=== PATIENT | female | born 1970 | race Caucasian/White ===

== ENCOUNTER → 2024-01-03 11:43 | Outpatient (REF) | payer OTHER, SELFPAY | LOC: HWRAD 11:43 | PROVIDERS: ATTENDING PHYSICIAN Orthopaedic Surgery; FAMILY PHYSICIAN Family Medicine | DX: S42.022D Displaced fracture of shaft of left clavicle, subsequent encounter for fracture with routine healing (principal) | CPT/HCPCS: 73200 ==

== ENCOUNTER 2024-08-19 11:49 | Emergency (ER) | payer OTHER, SELFPAY ==
[2024-08-19 11:51] VITALS: BP 131/94
[2024-08-19 12:59] LABS: Urine Albumin 1+ (Neg - Trace); Urine Bilirubin Negative (Negative); Urine Character Clear (Clear); Urine Color Yellow; Urine Glucose Negative (Negative); Urine Ketone Negative (Negative); Urine Leukocyte 2+ (Negative); Urine Nitrite Negative (Negative); Urine Occult Blood Negative (Negative); Urine Urobilinogen Negative (Neg - 1+)
[2024-08-19 14:15] VITALS: BP 125/77
--- NOTE | 2024-08-19 14:27 | ED.GENMED ---
History of Present Illness
<Zeenat Easley PA-C - Last Filed: 08/19/24 19:18>
General
Chief Complaint: Urinary Symptoms
Source: patient
Exam Limitations: none
Time Seen by Provider: 08/19/24 14:09
History of Present Illness
History of Present Illness:
54yoF with a history of kidney stones presenting for evaluation of abdominal discomfort and difficulty urinating. Symptoms initially began last week with urinary urgency and suprapubic pain. She states she was unable to urinate at all 2 days ago.
She is now able to urinate only if she leans forward and put some pressure on her lower abdomen. She reports continued urinary urgency and states her lower abdomen is very bloated. Patient also is experiencing bilateral flank pain. She has had
urinary urgency with her prior kidney stone but she has never been bloated like this before. Her bowel movements are described as diarrhea. She denies any fevers, chills, vomiting, pleuritic pain, shortness of breath. She was seen by her PCP
prior to arrival and was sent to the ED for evaluation.
Phy Exam
<Zeenat Easley PA-C - Last Filed: 08/19/24 19:18>
General Physical Exam
General Presentation: well appearing and no apparent distress
General Skin: warm and dry
General Habitus: normal
General Mental: alert
ENT Exam
ENT Exam: normocephalic
Gastrointestinal Exam
Gastrointestinal Exam: soft and other (Significant distention noted in the lower abdomen with tenderness. )
Neurological Exam
Neurological Exam: alert, no motor deficits and other (5/5 strength and normal sensation in bilateral lower extremities. 2+ patellar reflexes bilaterally.)
[place] Coma Scale
Eye Opening: Spontaneous
Verbal Response: Oriented
Motor Response: Obeys Commands
GCS Total Score: 15
Skin Exam
Skin Exam: normal color and warm/dry
Psychiatric Exam
Psychiatric Exam: normal mood/affect
<Beau Naik DO - Last Filed: 08/19/24 19:55>
[place] Coma Scale
GCS Total Score: 15
Course
<Zeenat Easley PA-C - Last Filed: 08/19/24 19:18>
Orders/Labs/Results
Orders:
Orders
08/19/24 12:30
Urinalysis Reflex To Culture Urgent
Date Specimen was Collected: 08/19/24
Time Specimen was Collected: 12:28
Urine Microscopic Reflex Cult Urgent
Urine Culture Urgent
VANESA Source: U
Specimen Description:
Date Specimen was Collected: 08/19/24
Time Specimen was Collected: 12:28
08/19/24 14:20
Bladder Scan- Treatment ONCE
08/19/24 14:26
CT Abd/pelvis W Iv Cont Urgent
Comment:
Reason For Exam: lower abd pain, difficulty urinating
08/19/24 14:40
Hyatt Placement- Treatment ONCE
Reason for insertion: Acute Retention
08/19/24 14:58
Complete Blood Count/With Diff Urgent
Comprehensive Metabolic Panel Urgent
08/19/24 19:02
Sulfamethox./Trimethoprim Ds [Bactrim Ds 800 mg/160 mg] 1 tablet PO NOW STA
Abnormal Lab Results
08/19/24 08/19/24
12:30 14:58
RBC 4.15 L 10^6/uL
(4.20-5.40)
Hct 36.0 L %
(37.0-47.0)
Leukocyte Esterase Rfl 2+ A
(Negative)
Urine WBC (Reflex) 30-40 A /HPF
(0-5)
Urine Albumin (Reflex) 1+ A
(Neg - Trace)
08/19/24 14:58
08/19/24 14:58
Vital Signs
Initial and Last Documented VS:
Initial Vital Signs
Temp Pulse Resp BP Pulse Ox
97.9 F 83 16 131/94 96
08/19/24 11:51 08/19/24 11:51 08/19/24 11:51 08/19/24 11:51 08/19/24 11:51
Last Documented Vital Signs
Temp Pulse Resp BP Pulse Ox
97.9 F 63 16 102/72 99
08/19/24 11:51 08/19/24 17:25 08/19/24 17:25 08/19/24 17:25 08/19/24 17:25
Gabelt;Beau Naik, - Last Filed: 08/19/24 19:55>
Orders/Labs/Results
Orders:
Orders
08/19/24 12:30
Urinalysis Reflex To Culture Urgent
Date Specimen was Collected: 08/19/24
Time Specimen was Collected: 12:28
Urine Microscopic Reflex Cult Urgent
Urine Culture Urgent
VANESA Source: U
Specimen Description:
Date Specimen was Collected: 08/19/24
Time Specimen was Collected: 12:28
08/19/24 14:20
Bladder Scan- Treatment ONCE
08/19/24 14:26
CT Abd/pelvis W Iv Cont Urgent
Comment:
Reason For Exam: lower abd pain, difficulty urinating
08/19/24 14:40
Hyatt Placement- Treatment ONCE
Reason for insertion: Acute Retention
08/19/24 14:58
Complete Blood Count/With Diff Urgent
Comprehensive Metabolic Panel Urgent
08/19/24 19:02
Sulfamethox./Trimethoprim Ds [Bactrim Ds 800 mg/160 mg] 1 tablet PO NOW STA
Abnormal Lab Results
08/19/24 08/19/24
12:30 14:58
RBC 4.15 L 10^6/uL
(4.20-5.40)
Hct 36.0 L %
(37.0-47.0)
Leukocyte Esterase Rfl 2+ A
(Negative)
Urine WBC (Reflex) 30-40 A /HPF
(0-5)
Urine Albumin (Reflex) 1+ A
(Neg - Trace)
08/19/24 14:58
08/19/24 14:58
Vital Signs
Initial and Last Documented VS:
Initial Vital Signs
Temp Pulse Resp BP Pulse Ox
97.9 F 83 16 131/94 96
08/19/24 11:51 08/19/24 11:51 08/19/24 11:51 08/19/24 11:51 08/19/24 11:51
Last Documented Vital Signs
Temp Pulse Resp BP Pulse Ox
97.9 F 63 16 102/72 99
08/19/24 11:51 08/19/24 17:25 08/19/24 17:25 08/19/24 17:25 08/19/24 17:25
<Zeenat Easley PA-C - Last Filed: 08/19/24 19:18>
MDM/Problems Addressed
Differential Diagnosis Includes:
54yoF here with difficulty urinating and lower abd discomfort x several days. Sent here by PCP. Hx of kidney stones. VSS. There is significant distention noted in the lower abdomen. Differential diagnosis includes but is not limited to: UTI, urinary
retention, kidney stone, constipation
Initial ED plan: UA obtained in triage shows 2+ leukocytes with 30-40 WBC noted. There is >30/LPF squamous epithelial cells present suggesting contaminated sample. Will check bladder scan, CBC, CMP, and CT abdomen.
<Zeenat Easley PA-C - Last Filed: 08/19/24 19:18>
*Critical Care Note
Total Time (30-74mins, 75-104mins- exclusive of procedures): Not Applicable
<Zeenat Easley PA-C - Last Filed: 08/19/24 19:18>
Update Note
Update Note:
Postvoid residual greater than 2 L. Hyatt catheter inserted by nurse with return of about 2200cc clear yellow urine. Abdominal distention significantly improved after catheter placement. Unclear cause of retention. She is not taking any
anticholinergic medications and denies being constipated. She reports two episodes of transient leg weakness over the past few days but denies this currently. Strength, sensation, and reflexes intact to the lower extremities. Labs overall
unremarkable including normal renal function. CT abdomen is negative for acute findings. No indication for hospitalization. She was referred to urology as well as her PCP for further evaluation and catheter removal. Will cover with Bactrim for
possible UTI. ED return precautions reviewed including fevers. Patient in agreement with plan and was discharged in stable condition.
ED Attending Note
<Zeenat Easley PA-C - Last Filed: 08/19/24 19:18>
-
Portions of this chart may have been created with voice recognition software.� Occasional wrong word or��sound alike� substitutions may have occurred due to the inherent limitations of voice recognition software.
<Beau Naik DO - Last Filed: 08/19/24 19:55>
ED Attending Note
Patient seen and examined by attending physician: Yes
I performed the substantive portion of visit, reviewed & personally made and approve the management plan that is documented in note by myself or SILVANO.: Yes
ED Attending Note:
I agree with Zeenat's note
Patient presents with suprapubic discomfort that has been present to a certain degree on and off for a week or 2 but became prominent over the weekend. Patient noted she was unable to pass any urine. She denies any use of [id number]
decongestants or anticholinergics other than an occasional Claritin. She denies any real focal weakness numbness or tingling. She had a couple episodes that were transient of her legs feeling slightly weak but she was standing during these
episodes and did not have to sit down and did not fall. She denies any back pain.
General: Awake, Alert, Oriented X3. No acute distress.
Vitals: unremarkable
Head: Atraumatic
Eyes: Pupils equal, EOMI
Abd: Soft, Nontender, No pulsatile mass
Neuro: Cranial nerves intact, muscle strength equal bilaterally
Skin: Warm, dry, no rash
Extremities: pulses equal b/l, no edema
Patient has significant relief of discomfort with the placement of Hyatt catheter. Over 2 L of urine returned.
Unclear reason for urinary retention. Does not seem related to medications. Her neurologic exam is intact at this point. Will obtain a CT looking for any space-occupying lesion in the pelvis.
Labs are unremarkable. Urinalysis does show a significant number of white blood cells per high-power field but she does also have a lot of squamous cells. This specimen was taken before the catheter and is likely just a contaminated specimen.
Discharge Plan
Departure
Patient Disposition: Home (Routine Discharge)
Date of Disposition: 08/19/24
Time of Disposition: 18:58
Patient with high blood pressure during this ER visit?: No
Discharge Problem:
Acute urinary retention, Urinary tract infection
Instructions: Urinary retention - Discharge instructions, How to care for a urinary catheter
Prescriptions:
New
sulfamethoxazole-trimethoprim [Bactrim DS] 800-160 mg tablet
1 tab PO BID 5 Days Qty: 9 0RF
Referrals:
Glenroy Max MD [Active] -
Santiago Perkins MD [Family Provider] -
Activity Restrictions/Additional Instructions:
Take antibiotics as prescribed.
Please call tomorrow to schedule a follow-up with your family doctor and urology. Catheter will need to be removed by urology in 7 to 10 days.
Return to the ER with any new or worsening symptoms including fevers.
Interventions
Interventions:
*Risk Screen - Suicide Last Done: 08/19/24 11:51
*General Assessment Last Done: 08/19/24 11:51
*ED- Fall Risk Assessment Last Done: 08/19/24 14:22
*ED COVID-19 Vaccine History Last Done: 08/19/24 14:22
ED-Female Genitourinary Assessment Last Done: 08/19/24 14:22
Discharge Date and Time
Print Language: SURINAMESE
[2024-08-19 14:33] LABS: Urine Squamous Cell >30 /LPF (Few)
[2024-08-19 14:34] LABS: Urine Amorphous Seen
[2024-08-19 14:35] LABS: Urine Red Blood Cell 0-2 /HPF (0-2)
[2024-08-19 14:36] LABS: Urine White Cell 30-40 /HPF (0-5)
[2024-08-19 15:14] LABS: % Basophils 0.3 % (0-2); % Eosinophils 1.5 % (0-6); % Immature Granulocytes 0.1 % (0-0.5); % Lymphocytes 27.1 % (20.5-51.1); % Monocytes 6.2 % (1.7-9.3); % Neutrophils 64.8 % (42.2-75.2); Absolute Eosinophils 0.1 10^3/uL (0-0.7); Absolute Lymphocytes 1.8 10^3/uL (1.2-3.4); Absolute Monocytes 0.4 10^3/uL (0.1-0.6); Absolute Neutrophils 4.4 10^3/uL (1.4-6.5); Hemoglobin 12.8 g/dL (12.0-16.0); Mean Corp Hgb Conc. 35.6 g/dL (33.0-37.0); Mean Corpuscular Hgb 30.8 pg (27.0-31.0); Mean Corpuscular Volume 86.7 fL (81.0-99.0); Nucleated Red Blood Cells % 0 %; Platelet Count 226 10^3/uL (130-400); Red Blood Cell Count 4.15 10^6/uL (4.20-5.40); Red Cell Dist. Width 12.5 % (11.5-14.5); White Blood Cell Count 6.8 10^3/uL (4.8-10.8)
[2024-08-19 15:28] LABS: ALT (SGPT) 23 U/L (0-35); AST (SGOT) 26 U/L (14-36); Albumin 4.2 g/dl (3.5-5.0); Alkaline Phosphatase 85 U/L (38-126); Blood Urea Nitrogen 8 mg/dl (7-17); Calcium 9.8 mg/dl (8.4-10.2); Carbon Dioxide 28 mmol/L (22-30); Chloride 106 mmol/L (98-107); Glucose 83 mg/dl (70-99); Potassium 3.9 mmol/L (3.5-5.1); Sodium 141 mmol/L (135-145); Total Bilirubin 0.8 mg/dl (0.2-1.3); Total Protein 6.8 g/dl (6.3-8.2); eGFR > 60.00
[2024-08-19 17:25] VITALS: BP 102/72
[2024-08-19] MEDS: BACTRIM DS 800 MG/160 MG 1 TABLET PO (19:28)
== END 2024-08-19 20:09 | disposition home or self-care (01) ==
LOC: EMR 11:49
PROVIDERS: Physician Assistant; Student in an Organized Health Care Education/Training Program; EMERGENCY PHYSICIAN Emergency Medicine; FAMILY PHYSICIAN Family Medicine
DX: N39.0 Urinary tract infection, site not specified (principal); R33.9 Retention of urine, unspecified; Z87.442 Personal history of urinary calculi
CPT/HCPCS: 99285; 51798; 51702; 74177; 80053; 81003; 81015; 85025; 87086; Q9967